=== PATIENT | male | born 1950 | race Caucasian/White ===

== ENCOUNTER → 2016-09-17 | Outpatient (REF) | payer MEDICARE, OTHER ==
[~2016-09-17] MED LIST: /CELE20CA PO; /WARF5TA PO; PAXIL PO; PERC10TA PO; PERC7.5T12 PO; TYLE325T5 PO; XTANDI PO; [UNRECOGNIZED DRUG - OTHER] INJ
[2016-09-17 13:13] LABS: INR 0.92
== END ==
LOC: M LAB REF 12:48
PROVIDERS: ATTEND Internal Medicine
DX: C61 Malignant neoplasm of prostate (principal); D50.9 Iron deficiency anemia, unspecified

== ENCOUNTER → 2017-01-05 | Outpatient (CLI) | payer MEDICARE ==
[~2017-01-05] MED LIST changes: +BASE XX; +HYDR2TAB2 PO; +LACT10SO3; +MEDR4PAK PO; +METO5TAB2 PO; +MIRT1TAB3 PO; +MOVA1TAB PO; +ONDA8TAB7 PO; +ONDA8TAB8 PO; +OXYC-141; +OXYC-403 PO; +OXYC-517; +OXYC20TA40; +OXYC40TA29 PO; +PARO15TA; +PAXI30TA11 PO; +RELI150T PO; +SENN8.6C PO
--- NOTE | 2017-01-05 14:49 | REP ---
WHOLE BODY BONE SCAN: Following the intravenous administration of 21.4 mCi of technetium 99m MDP, patient's whole body is imaged in the anterior and posterior projections. Additional oblique images of the thoracic and pelvic regions are performed as well as lateral views of the calvarium. Comparison made with prior exams including 06/18/2016 and 06/21/2014. There is heterogeneous increased uptake in the lower sternum. This is most consistent with metastatic disease. Old focus of increased uptake in the lateral left 10th rib is consistent with an old fracture, as seen on CT scan. There is no other compelling evidence of osseous metastases scintigraphically. There is mild to moderate right hydroureteronephrosis noted. Urinary contamination is seen in the region of the scrotum. Photopenic area in the right knee is compatible with a metallic prosthesis. IMPRESSION: Heterogeneous increased uptake in the lower sternum is most consistent with metastatic disease. No other compelling scintigraphic evidence of osseous metastases. Mild to moderate right hydroureteronephrosis noted. Signed by Yonatan Mae MD 01/05/2017 08:12 P
--- NOTE | 2017-01-05 15:58 | REP ---
MRI PELVIS: TECHNIQUE: Multiple sequences obtained prior to and following the intravenous administration of 17 mL gadolinium. Comparison made with prior CT 06/18/2016. The patient has had a prior prostatectomy. At that level there is diffuse ill-defined high signal on the T2 FS images in the deep pelvic musculature and also in the prostatectomy site and perirectal region. These are most consistent with postradiation changes. There appears to be diffuse thickening at the base of the bladder. There is mild dilatation of the right ureter. There is no adenopathy seen in the pelvis. The visualized osseous structures demonstrate no bone lesion. There is minor subchondral marrow edema in the pubis bilaterally along the pubic symphysis most consistent with post radiation change. No definite recurrent mass is seen in the pelvis. IMPRESSION: Post radiation changes diffusely at the level of the prostate in this patient, status post prostatectomy. There is diffuse thickening at the base of the bladder with mild right hydroureter. No definite recurrent mass or adenopathy. No definite suspicious bone lesion. Signed by Yonatan Mae MD 01/05/2017 08:12 P
== END ==
LOC: M RAD 09:47
PROVIDERS: ATTEND Internal Medicine Hematology & Oncology
DX: C61 Malignant neoplasm of prostate (principal); R10.2 Pelvic and perineal pain
CPT/HCPCS: 72197; 78306; A9503; A9576

== ENCOUNTER 2017-01-06 12:04 | Emergency (ER) | payer MEDICARE ==
[~2017-01-06] VITALS: Ht 175.3 cm; Wt 85.5 kg
[~2017-01-06 12:04] MED LIST changes: -BASE XX; -HYDR2TAB2 PO; -LACT10SO3; -MEDR4PAK PO; -METO5TAB2 PO; -MIRT1TAB3 PO; -MOVA1TAB PO; -ONDA8TAB7 PO; -ONDA8TAB8 PO; -OXYC-141; -OXYC-403 PO; -OXYC-517; -OXYC20TA40; -OXYC40TA29 PO; -PARO15TA; -PAXI30TA11 PO; -RELI150T PO; -SENN8.6C PO
[2017-01-06] MEDS ORDERED: PARO15TA (12:15)
[2017-01-06] MEDS ORDERED: OXYC-141 (12:15)
[2017-01-06] MEDS ORDERED: OXYC-517 (12:15)
[2017-01-06] MEDS ORDERED: LACT10SO3 (12:15)
[2017-01-06] MEDS ORDERED: OXYC20TA40 (12:15)
[2017-01-06] MEDS ORDERED: ONDANSETRON 4MG/2ML VIAL (J2405) IV ONE (13:15)
[2017-01-06] MEDS ORDERED: MORPHINE 4 MG/ML 1ML SYRINGE IV ONE (13:15)
--- NOTE | 2017-01-06 14:05 | REP ---
KUB, ONE VIEW: HISTORY: Constipation. Air is present in small and large intestine. Several minimally dilated loops of small intestine are present. There are no air-fluid levels or pneumoperitoneum. A moderate amount of stool is present in the colon. IMPRESSION: 1. Nonspecific bowel gas pattern. 2. There is moderate amount of stool in the colon. Signed by Balwinder Meyers MD 01/06/2017 02:09 P
[2017-01-06] MEDS ORDERED: METHYLNALTREXONE BROMIDE 12 MG/0.6 ML VIAL (RELISTOR) SC ONE (15:00)
[2017-01-06 16:23] VITALS: BP 109/67
== END 2017-01-06 16:27 | disposition home or self-care (01) ==
LOC: M ED 12:04
DX: K59.00 Constipation, unspecified (principal); F33.8 Other recurrent depressive disorders; Z85.46 Personal history of malignant neoplasm of prostate; Z79.899 Other long term (current) drug therapy
CPT/HCPCS: 36415; 74000; 96374; 96375; 99284; J2405

== ENCOUNTER → 2017-01-11 | Outpatient (CLI) | payer MEDICARE ==
[~2017-01-11] MED LIST changes: +BASE XX; +GASTROGRAFIN SOLUTION 30ML (Q9963) As Ordered ONE; +HYDR2TAB2 PO; +ISOVUE-370 76% 100ML VIAL (Q9967) As Ordered ONE; +LACT10SO3; +MEDR4PAK PO; +METO5TAB2 PO; +MIRT1TAB3 PO; +MOVA1TAB PO; +ONDA8TAB7 PO; +ONDA8TAB8 PO; +OXYC-141; +OXYC-403 PO; +OXYC-517; +OXYC20TA40; +OXYC40TA29 PO; +PARO15TA; +PAXI30TA11 PO; +RELI150T PO; +SENN8.6C PO
--- NOTE | 2017-01-11 19:47 | REP ---
CT CHEST WITH IV CONTRAST: TECHNIQUE: Axial contrast enhanced images from the thoracic inlet to the upper abdomen using 100 mL Isovue 370 intravenous contrast material with multiplanar reformations. COMPARISON: 01/24/2015 Scattered interstitial fibrotic changes are seen in the both lungs without suspicious nodular opacity. There is no evidence of thoracic aortic dissection. The root of the aorta is slightly ectatic at 4.2 cm in AP dimension. There is no evidence of mediastinal, hilar, or chest wall lymphadenopathy. There is no pleural of pericardial effusion. Focal sclerosis in the right 8th and 9th ribs laterally is unchanged since the prior CT scan, as is sclerosis at an old left rib fracture laterally at the left 9th rib. There is an area of sclerosis in the inferior aspect of the sternum which is new, consistent with metastatic disease, as seen on recent bone scan of 01/05/2017. IMPRESSION: New area of heterogenous sclerosis in the inferior sternum consistent with a metastatic bone lesion. Old focal sclerotic densities in the right 8th and 9th ribs and left 9th rib are unchanged since the prior CT of 2014. No new parenchymal nodules or adenopathy. Signed by Yonatan Mae MD 01/12/2017 12:35 P
--- NOTE | 2017-01-11 21:16 | REP ---
CT ABDOMEN AND PELVIS WITH ORAL AND IV CONTRAST: TECHNIQUE: Axial contrast enhanced images from the lung bases to the pubic symphysis using 100 mL Isovue 370 intravenous contrast material with multiplanar reformations. COMPARISON: 06/21/2014 The liver demonstrates a tiny cyst at the right dome of the liver which is unchanged. No new liver lesion is seen. The spleen, adrenals, pancreas and left kidney are unremarkable. There is new mild to moderate right hydroureteronephrosis. The right ureter is diffusely dilated down to the bladder. The bladder demonstrates diffuse wall thickening. No renal stones are seen. There is no abdominal aortic aneurysm. There are mild atherosclerotic calcifications of the abdominal aorta. There is right retroperitoneal adenopathy with new enlarged lymph nodes in the retrocaval region. The most superior conglomerate at the level of the upper pole of the right kidney measures 3.3 x 2.2 cm. Just inferior to that another area of lymphadenopathy measures 3.7 x 1.7 cm. Scattered subcentimeter periaortic lymph nodes are seen below that level and there are also scattered subcentimeter mesenteric lymph nodes. No bowel wall thickening is seen. The appendix is normal. The patient has had a prior prostatectomy. No other pelvic abnormality is seen. There is a focal area of sclerosis in the posterior superior margin of the S1 vertebral body. This does not demonstrate increased uptake on bone scan and is not suspicious by recent MRI. There are degenerative changes of the spine. IMPRESSION: The patient is status post prostatectomy. Diffuse bladder wall thickening. There is mild to moderate right hydroureteronephrosis without an obstructing stone. Underlying lesion at the right ureterovesical junction is not excluded. New right retroperitoneal adenopathy. Signed by Yonatan Mae MD 01/12/2017 12:35 P
== END ==
LOC: M RAD 14:39
PROVIDERS: ATTEND Internal Medicine Hematology & Oncology
DX: C61 Malignant neoplasm of prostate (principal); C79.51 Secondary malignant neoplasm of bone
CPT/HCPCS: 71260; 74178; Q9963; Q9967

== ENCOUNTER 2017-01-18 11:49 | Emergency (ER) | payer MEDICARE ==
[~2017-01-18] VITALS: Ht 175.3 cm; Wt 85.4 kg
[~2017-01-18 11:49] MED LIST changes: -BASE XX; -GASTROGRAFIN SOLUTION 30ML (Q9963) As Ordered ONE; -HYDR2TAB2 PO; -ISOVUE-370 76% 100ML VIAL (Q9967) As Ordered ONE; -MEDR4PAK PO; -METO5TAB2 PO; -MIRT1TAB3 PO; -MOVA1TAB PO; -ONDA8TAB7 PO; -ONDA8TAB8 PO; -OXYC-403 PO; -OXYC40TA29 PO; -PAXI30TA11 PO; -RELI150T PO; -SENN8.6C PO
[2017-01-18] MEDS ORDERED: ONDA8TAB7 PO (12:23)
[2017-01-18] MEDS ORDERED: OXYC40TA29 PO (12:23)
[2017-01-18] MEDS ORDERED: METHYLNALTREXONE BROMIDE 12 MG/0.6 ML VIAL (RELISTOR) SC ONE (14:00)
[2017-01-18 14:07] LABS: BASO % 0.1 % (0.0-1.0); EOS % 0.2 % (0.0-3.0); LARGE UNSTAINED CELL # 0.3 K/mm3 (0.0-0.4); LYMPH # 1.1 K/mm3 (1.5-4.5); LYMPH % 10.3 % (24.0-44.0); MEAN CORPUSCULAR HEMOGLOBIN 31.9 pg (27.0-33.0); MEAN CORPUSCULAR HGB CONC 33.3 g/dl (32.0-36.5); MONO # 1.3 K/mm3 (0.0-0.8); MONO % 16.3 % (0.0-5.0); NEUTROPHILS # 5.7 K/mm3 (1.8-7.7); NEUTROPHILS % 70.2 % (36.0-66.0); PLATELET COUNT, AUTOMATED 301 k/mm3 (150-450); RED CELL DISTRIBUTION WIDTH 19.2 % (11.5-14.5); WHITE BLOOD COUNT 8.2 K/mm3 (4.0-10.0)
[2017-01-18 14:25] LABS: ALBUMIN 2.9 GM/DL (3.2-5.2); ALBUMIN/GLOBULIN RATIO 0.73 (1.00-1.93); ALKALINE PHOSPHATASE 110 U/L (45-117); ALT/SGPT 19 U/L (12-78); ANION GAP 11 MEQ/L (8-16); AST/SGOT 16 U/L (15-37); BILIRUBIN,DIRECT 0.1 MG/DL (0.0-0.2); BILIRUBIN,TOTAL 0.4 MG/DL (0.2-1.0); BLOOD UREA NITROGEN 16 MG/DL (7-18); CALCIUM LEVEL 8.3 MG/DL (8.8-10.2); CARBON DIOXIDE LEVEL 24 MEQ/L (21-32); CHLORIDE LEVEL 108 MEQ/L (98-107); CREATININE FOR GFR 1.06 MG/DL (0.70-1.30); GLOMERULAR FILTRATION RATE > 60.0 (>49); GLUCOSE, FASTING 114 MG/DL (80-110); POTASSIUM SERUM 3.6 MEQ/L (3.5-5.1); SODIUM LEVEL 143 MEQ/L (136-145); TOTAL PROTEIN 6.9 GM/DL (6.4-8.2)
[2017-01-18 15:03] VITALS: BP 133/84
[2017-01-18] MEDS ORDERED: RELI150T PO (16:12)
--- NOTE | 2017-01-18 19:44 | ECGEPIP ---
Stationary ECG Study [facility] - ED Test Date: 2017-01-18 Pat Name: ARACELIS LLANES Department: Room: - Gender: M Senior Shipping Clerk: CHRISTINA : 1950 Requested By: JOSÉ LUIS Mosher Order Number: [id number] Reading MD: Maynor Mcmillan Measurements Intervals [place] Rate: 84 P: -10 AR: 123 QRS: -26 QRSD: 85 T: -1 QT: 342 QTc: 406 Interpretive Statements SINUS RHYTHM BORDERLINE LEFT AXIS DEVIATION Electronically Signed On 01-18-2017 19:44:38 EDT by Maynor Mcmillan
== END 2017-01-18 16:25 | disposition home or self-care (01) ==
LOC: M ED 11:49
DX: K59.00 Constipation, unspecified (principal); C61 Malignant neoplasm of prostate; I71.4 Abdominal aortic aneurysm, without rupture; I51.9 Heart disease, unspecified; Z79.899 Other long term (current) drug therapy

== ENCOUNTER → 2017-01-22 | Outpatient (CLI) | payer MEDICARE ==
[~2017-01-22] MED LIST changes: +BASE XX; +HYDR2TAB2 PO; +MEDR4PAK PO; +METO5TAB2 PO; +MIRT1TAB3 PO; +MOVA1TAB PO; +ONDA8TAB7 PO; +ONDA8TAB8 PO; +OXYC-403 PO; +OXYC40TA29 PO; +PAXI30TA11 PO; +RELI150T PO; +SENN8.6C PO
--- NOTE | 2017-01-22 12:05 | REP ---
PELVIS: Single AP view. HISTORY: Complains of constipation. History of prostate carcinoma. Comparison KUB study is from January 06, 2017. FINDINGS: There is a small quantity of air in the rectosigmoid colon. There is no evidence of constipation. Bony pelvic ring is intact. No bony destructive or sclerotic lesion is seen. There is mild superior acetabular spurring bilaterally. IMPRESSION: Negative AP pelvis view. Signed by Craig Herman MD 01/22/2017 01:55 P
--- NOTE | 2017-01-22 12:07 | REP ---
KUB: Single view. HISTORY: Constipation. Prostate cancer. FINDINGS: There is air and some stool in the hepatic flexure and descending segments of the colon. A few loops of air-filled but nondilated small bowel are seen. Psoas margins and flank stripes are intact. No mass organomegaly is seen. IMPRESSION: Bowel gas pattern shows no evidence of obstruction or obstipation. There is less colonic stool than was visible January 06, 2017. Signed by Craig Herman MD 01/22/2017 01:55 P
== END ==
LOC: M RAD 11:00
PROVIDERS: ATTEND Physician Assistant
DX: C61 Malignant neoplasm of prostate (principal); K59.03 Drug induced constipation

== ENCOUNTER 2017-02-12 08:30 | Outpatient (CLI) | payer MEDICARE ==
[~2017-02-12] VITALS: Ht 175.3 cm; Wt 84.1 kg
[~2017-02-12 08:30] MED LIST changes: +ACETAMINOPHEN TAB 650MG DOSE (2X325MG) PO SCH; -BASE XX; -HYDR2TAB2 PO; -MEDR4PAK PO; -METO5TAB2 PO; -MIRT1TAB3 PO; -MOVA1TAB PO; -ONDA8TAB8 PO; -OXYC-403 PO; -PAXI30TA11 PO; -SENN8.6C PO; +diphenhydrAMINE 25 MG CAP PO SCH
[2017-02-12] MEDS ORDERED: OXYC-403 PO (13:03)
[2017-02-12] MEDS ORDERED: HYDR2TAB2 PO (13:20)
[2017-02-12] MEDS ORDERED: MOVA1TAB PO (13:22)
[2017-02-12] MEDS ORDERED: ONDA8TAB8 PO (13:22)
[2017-02-12] MEDS ORDERED: SENN8.6C PO (13:23)
[2017-02-12] MEDS ORDERED: MIRT1TAB3 PO (13:24)
[2017-02-12] MEDS ORDERED: MEDR4PAK PO (13:32)
[2017-02-12] MEDS ORDERED: METO5TAB2 PO (13:32)
[2017-02-12] MEDS ORDERED: BASE XX (13:34)
[2017-02-12] MEDS ORDERED: PAXI30TA11 PO (13:43)
== END 2017-02-12 14:45 | disposition home or self-care (01) ==
LOC: M INFU 08:30
PROVIDERS: ATTEND Internal Medicine
DX: D64.9 Anemia, unspecified (principal); Z96.651 Presence of right artificial knee joint; C61 Malignant neoplasm of prostate; C79.51 Secondary malignant neoplasm of bone; I71.4 Abdominal aortic aneurysm, without rupture; Z79.899 Other long term (current) drug therapy
CPT/HCPCS: 36415; 36430; 86850; 86900; 86901; 86920; P9016

== ENCOUNTER → 2017-03-19 | Outpatient (REF) | payer MEDICARE ==
[~2017-03-19] MED LIST changes: -ACETAMINOPHEN TAB 650MG DOSE (2X325MG) PO SCH; +BASE XX; +HYDR2TAB2 PO; +MEDR4PAK PO; +METO5TAB2 PO; +MIRT1TAB3 PO; +MOVA1TAB PO; +ONDA8TAB8 PO; +OXYC-403 PO; +PAXI30TA11 PO; +SENN8.6C PO; -diphenhydrAMINE 25 MG CAP PO SCH
[2017-03-19 13:59] LABS: BASO % 0.2 % (0.0-1.0); EOS # 0.2 10^3/uL (0.0-0.50); EOS % 3.9 % (0.0-3.0); IMMATURE GRANULOCYTE % 3.8 % (0-0); LYMPH # 0.9 10^3/uL (1.5-4.5); LYMPH % 16.5 % (24.0-44.0); MEAN CORPUSCULAR HEMOGLOBIN 31.5 pg (27.0-33.0); MEAN CORPUSCULAR HGB CONC 30.8 g/dl (32.0-36.5); MEAN CORPUSCULAR VOLUME 102.4 fl (80.0-96.0); MONO # 1.5 10^3/uL (0.0-0.8); MONO % 27.2 % (0.0-5.0); NEUTROPHILS # 2.6 10^3/uL (1.8-7.7); NEUTROPHILS % 48.4 % (36.0-66.0); PLATELET COUNT, AUTOMATED 201 10^3/uL (150-450); WHITE BLOOD COUNT 5.3 10^3/uL (4.0-10.0)
[2017-03-19 14:01] LABS: POSITIVE MORPH POS FLAG; RED CELL DISTRIBUTION WIDTH 20.1 % (11.5-14.5)
[2017-03-19 14:02] LABS: ADD MORPHOLOGY? YES
[2017-03-19 14:17] LABS: ANISOCYTOSIS 2+
[2017-03-19 14:23] LABS: ERYTHROCYTE SEDIMENTATION RATE 129 mm/hr (0-20)
[2017-03-19 14:56] LABS: ALBUMIN 1.6 GM/DL (3.2-5.2); ALBUMIN/GLOBULIN RATIO 0.37 (1.00-1.93); BILIRUBIN,TOTAL 0.2 MG/DL (0.2-1.0); CALCIUM LEVEL 7.3 MG/DL (8.8-10.2); CREATININE FOR GFR 1.88 MG/DL (0.70-1.30); GLOMERULAR FILTRATION RATE 38.5 (>49); POTASSIUM SERUM 3.7 MEQ/L (3.5-5.1); TOTAL PROTEIN 5.9 GM/DL (6.4-8.2)
== END ==
LOC: M SHH 13:34
PROVIDERS: ATTEND Internal Medicine
DX: N32.1 Vesicointestinal fistula (principal); L02.419 Cutaneous abscess of limb, unspecified; Z79.2 Long term (current) use of antibiotics

== ENCOUNTER → 2017-03-29 | Outpatient (REF) | payer MEDICARE ==
[2017-03-29 16:23] LABS: BASO % 0.2 % (0.0-1.0); EOS # 0.4 10^3/uL (0.0-0.50); EOS % 7.8 % (0.0-3.0); LYMPH # 0.9 10^3/uL (1.5-4.5); LYMPH % 15.4 % (24.0-44.0); MEAN CORPUSCULAR HEMOGLOBIN 32.1 pg (27.0-33.0); MEAN CORPUSCULAR HGB CONC 31.4 g/dl (32.0-36.5); MEAN CORPUSCULAR VOLUME 102.3 fl (80.0-96.0); MONO # 1.1 10^3/uL (0.0-0.8); MONO % 18.8 % (0.0-5.0); NEUTROPHILS # 3.1 10^3/uL (1.8-7.7); NEUTROPHILS % 54.8 % (36.0-66.0); PLATELET COUNT, AUTOMATED 236 10^3/uL (150-450); RED CELL DISTRIBUTION WIDTH 19.1 % (11.5-14.5); WHITE BLOOD COUNT 5.7 10^3/uL (4.0-10.0)
[2017-03-29 16:38] LABS: ALBUMIN/GLOBULIN RATIO 0.41 (1.00-1.93); BILIRUBIN,TOTAL 0.3 MG/DL (0.2-1.0); CALCIUM LEVEL 8.2 MG/DL (8.8-10.2); CREATININE FOR GFR 1.85 MG/DL (0.70-1.30); GLOMERULAR FILTRATION RATE 39.3 (>49); POTASSIUM SERUM 3.8 MEQ/L (3.5-5.1); TOTAL PROTEIN 6.9 GM/DL (6.4-8.2)
[2017-03-29 17:02] LABS: ERYTHROCYTE SEDIMENTATION RATE 128 mm/hr (0-20)
== END ==
LOC: M SHH 15:41
PROVIDERS: ATTEND Internal Medicine
DX: N32.1 Vesicointestinal fistula (principal); L02.419 Cutaneous abscess of limb, unspecified; Z79.2 Long term (current) use of antibiotics

== ENCOUNTER → 2017-04-15 | Outpatient (REF) | payer MEDICARE ==
[2017-04-15 19:33] LABS: BASOPHILS 1 % (0-4); EOSINOPHILS 4 % (0-5)
[2017-04-15 19:36] LABS: PLATELET CLUMPS SMALL AMT
== END ==
LOC: M LAB REF 16:45
PROVIDERS: ATTEND Internal Medicine
DX: C61 Malignant neoplasm of prostate (principal); C79.51 Secondary malignant neoplasm of bone; D63.8 Anemia in other chronic diseases classified elsewhere